=== PATIENT | female | born 1970 | race Caucasian/White ===

== ENCOUNTER 2020-11-29 06:06 | Day surgery (SDC) | payer OTHER ==
[2020-11-26 12:52] LABS: BASOPHILS ABSOLUTE AUTO 0.04 K/mm3 (0.00-0.23); BASOPHILS PERCENT AUTO 1 % (0-2); EOSINOPHILS ABSOLUTE AUTO 0.21 K/mm3 (0.00-0.68); EOSINOPHILS PERCENT AUTO 3 % (0-6); IMMATURE GRAN ABSOLUTE AUTO 0.05 K/mm3 (0.00-0.10); IMMATURE GRAN PERCENT AUTO 1 % (0-1); LYMPHOCYTES ABSOLUTE AUTO 1.38 K/mm3 (0.84-5.20); LYMPHOCYTES PERCENT AUTO 20 % (21-46); MONOCYTES ABSOLUTE AUTO 0.49 K/mm3 (0.16-1.47); MONOCYTES PERCENT AUTO 7 % (4-13); Mean Corpuscular HGB 25.5 pg (26.0-34.0); Mean Corpuscular HGB Conc 31.4 g/dL (31.5-36.5); Mean Corpuscular Volume 81 fL (80-100); Mean Platelet Volume 9.4 fL (9.1-12.4); NEUTROPHILS ABSOLUTE AUTO 4.76 K/mm3 (1.96-9.15); NEUTROPHILS PERCENT AUTO 69 % (41-73); Platelet Count 271 K/mm3 (150-400); RDW Coefficient Variation 15.9 % (11.7-14.2); Red Blood Cell Count 4.32 M/mm3 (3.80-5.20); White Blood Cell Count 6.93 K/mm3 (4.00-11.30)
[2020-11-26 14:15] LABS: Anion Gap 5 mmol/L (6-16); Beta HCG, Quantitative, Serum <1 mIU/mL (0-3); Blood Urea Nitrogen 10 mg/dL (8-24); Bun/Creatinine Ratio 12.9 (12.0-20.0); CO2, Blood 27 mmol/L (21-32); Chloride, Blood 105 mmol/L (98-108); Creatinine, Blood 0.77 mg/dL (0.40-1.00); Glomerular Filtration Rate >60 (60-); Glucose, Blood 89 mg/dL (70-99); Potassium, Blood 3.9 mmol/L (3.5-5.5); Sodium, Blood 137 mmol/L (136-145)
[~2020-11-29] VITALS: Ht 173 cm; Wt 155.6 kg
[~2020-11-29 06:06] MED LIST: ACET325 PO; DOCU100 PO; FERRO-TIME325 M1 PO; FURO20 PO; LEVSOD100 PO; POTA10T PO; Percocet 5-3251 EACH PO; Prinivil10 MG PO; TRAZ50 PO; TUMS500 MG PO; VITAMIN D325 MC3 PO; Zofran4 MG PO
--- NOTE | 2020-11-29 07:43 | NUR ---
Ambulatory in Day Surgery History, Chart, Medications and Allergies reviewed before start of procedure.Patient confirms NPO status and agrees with scheduled surgery. Patient reports completing Chlorhexadine shower X2 prior to admission to hospital.Surgical site prepped with 2% Chlorhexidine cloth wipe.
--- NOTE | 2020-11-29 13:46 | NUR ---
1246 PT ARRIVE TO UNIT FROM DAY SURGERY, ORIENTED TO ROOM. CALL LIGHT WITHIN REACH, IV FLUIDS INFUSING. PT SIPPING WATER AND CHICKEN BROTH.
--- NOTE | 2020-11-29 15:26 | NUR ---
PT TOLERATING PO FLUIDS WELL, STOPPED IV FLUIDS PER DR ORDERS. IV TO LFA IS SALINE LOCKED. PT RESTING IN BED AT THIS TIME. DENIES N/V, N/T. PT REPORTS INCREASED PAIN W/ AMBULATION, DENIES PAIN MEDS AT THIS TIME. CALL LIGHT WITHIN REACH. WILL CONTINUE TO MONITOR.
--- NOTE | 2020-11-29 18:09 | NUR ---
SHIFT SUMMARY PT A&OX4, VSS, PLEASANT AND COOPERATIVE W/ CARE. POD0 TOTAL LAP HYSTERECTOMY W/ ROBOTIC ASSIST AND UMBILICAL HERNIA REPAIR. 5 LAP SITES TO ABD W/ DERMABOND, C/D/I. UMBILICAL INCISION W/ DERMABOND, C/D/I. HYPOACTIVE BOWEL TONES. PT HAS VOIDED. PT REPORTS VERY MINIMAL PAIN, JUST GENERAL DISCOMFORT AND PAIN W/ MOVEMENT. TREATED PER EMAR ORDERS. PT TOLERATING REGULAR DIET, DENIES N/V. SALINE LOCK LFA. PT DENIES N/T TO ALL EXTREMITIES. PT AMBULATING TO BATHROOM W/ SBA. PT RESTING IN BED AT THIS TIME, CALL LIGHT WITHIN REACH. WILL CONTINUE TO MONITOR AND REPORT TO ONCOMING RN.
--- NOTE | 2020-11-29 19:00 | NUR ---
RECEIVED REPORT AND ASSUMED CARE OF PT. SHE IS ALERT, SITTING UP IN BED. SHE STATES THAT SHE HAS NOT BEEN ABLE TO PRODUCE MUCH URINE. EDUCATED ON BLADDER SCAN AND NEED TO SCAN IF SHE IS UNABLE TO PRODUCE URINE. SHE COMPLAINS OF MILD PAIN AT THIS TIME, WILL MEDICATE PER MAR.
--- NOTE | 2020-11-29 20:00 | NUR ---
IV PRESENT ON ASSESSMENT TO LEFT UPPER ARM AND LEFT FOREARM.
[2020-11-30 04:16] LABS: BASOPHILS ABSOLUTE AUTO 0.01 K/mm3 (0.00-0.23); BASOPHILS PERCENT AUTO 0 % (0-2); EOSINOPHILS ABSOLUTE AUTO 0.04 K/mm3 (0.00-0.68); EOSINOPHILS PERCENT AUTO 0 % (0-6); Hematocrit 35.1 % (33.0-51.0); IMMATURE GRAN ABSOLUTE AUTO 0.04 K/mm3 (0.00-0.10); IMMATURE GRAN PERCENT AUTO 0 % (0-1); LYMPHOCYTES ABSOLUTE AUTO 0.82 K/mm3 (0.84-5.20); LYMPHOCYTES PERCENT AUTO 9 % (21-46); MONOCYTES ABSOLUTE AUTO 0.65 K/mm3 (0.16-1.47); MONOCYTES PERCENT AUTO 7 % (4-13); Mean Corpuscular HGB 25.7 pg (26.0-34.0); Mean Corpuscular HGB Conc 31.3 g/dL (31.5-36.5); Mean Corpuscular Volume 82 fL (80-100); Mean Platelet Volume 9.3 fL (9.1-12.4); NEUTROPHILS ABSOLUTE AUTO 7.86 K/mm3 (1.96-9.15); NEUTROPHILS PERCENT AUTO 84 % (41-73); Platelet Count 265 K/mm3 (150-400); RDW Coefficient Variation 16.6 % (11.7-14.2); RDW Standard Deviation 49.1 fL (35.1-46.3); Red Blood Cell Count 4.28 M/mm3 (3.80-5.20); White Blood Cell Count 9.42 K/mm3 (4.00-11.30)
--- NOTE | 2020-11-30 06:04 | NUR ---
SHIFT SUMMARY: GORDY IS A&OX4. VSS, NO ACUTE EVENTS OVERNIGHT. SHE IS A STANDBY ASSIST TO THE BATHROOM, URINATING WITHOUT DIFFICULTY THIS SHIFT. SHE IS TOLERATING PO INTAKE WELL, ABDOMINAL BINDER IN PLACE FOR COMFORT, LAP SITES X 5 C/D&I. SHE REPORTS ADEQUATE PAIN CONTROL WITH 2 TABLETS OF PERCOCET. SHE IS LYING IN BED WITH THE CALL LIGHT IN REACH. WILL REPORT TO DAY SHIFT RN.
[2020-11-30] MEDS ORDERED: DOCU100 PO (12:42)
[2020-11-30] MEDS ORDERED: IBUP800 PO (12:43)
[2020-11-30] MEDS ORDERED: Milk Of Ma400 MG/5 M PO (12:47)
[2020-11-30] MEDS ORDERED: Percocet 5-3251 EACH PO (12:51)
[2020-11-30] MEDS ORDERED: PROM25 PO (12:52)
[2020-11-30] MEDS ORDERED: SENN187 PO (12:53)
[2020-11-30] MEDS ORDERED: SIME80CH PO (12:53)
--- NOTE | 2020-11-30 13:21 | NUR ---
DISCHARGE NOTE: EDUCATED PATIENT ON DISCHARGE INSTRUCTIONS. PATIENT VERBALIZED UNDERSTANDING OF INSTRUCTIONS. HER HARD PERSCRIPTION IS IN THE FOLDER WITH INSTRUCTIONS. BOTH IV WERE TAKEN OUT AND WERE WNL. SHE IS ALERT AND ORIENTED X4. VS ARE WNL AND IS ON RA. PAIN IS MANAGED WITH 2 PERCOCETS PO. PATIENT IS VOIDING AND TOLERATING PO INTAKE. SHE IS CURRENTLY GATHERING HER ITEMS UP IN THE ROOM AND GETTING DRESSED. SHE WILL BE WHEELCHAIRED OUT AND HAVING A FAMILY MEMBER PICK HER UP.
== END 2020-11-30 13:40 | disposition home or self-care (01) ==
LOC: ORSCMMR 06:06 → ORD 07:30 → ORSCMMR 07:30 → SURS 13:02 → ORSCMMR 11-30 13:40
PROVIDERS: Obstetrics & Gynecology
PROC: 0UT7FZZ Resection of Bilateral Fallopian Tubes, Via Natural or Artificial Opening With Percutaneous Endoscopic Assistance (ICD-10-PCS; principal; 2020-11-29 07:30)
PROC: 8E0W4CZ Robotic Assisted Procedure of Trunk Region, Percutaneous Endoscopic Approach (ICD-10-PCS; principal; 2020-11-29 07:30)
PROC: 0WQF0ZZ Repair Abdominal Wall, Open Approach (ICD-10-PCS; principal; 2020-11-29 07:30)
PROC: 0UT9FZZ Resection of Uterus, Via Natural or Artificial Opening With Percutaneous Endoscopic Assistance (ICD-10-PCS; principal; 2020-11-29 07:30)
DX: D25.9 Leiomyoma of uterus, unspecified (principal); N92.1 Excessive and frequent menstruation with irregular cycle; K42.9 Umbilical hernia without obstruction or gangrene; N84.0 Polyp of corpus uteri; N73.6 Female pelvic peritoneal adhesions (postinfective); N83.8 Other noninflammatory disorders of ovary, fallopian tube and broad ligament; N92.4 Excessive bleeding in the premenopausal period; I10 Essential (primary) hypertension; Z87.891 Personal history of nicotine dependence; E66.01 Morbid (severe) obesity due to excess calories; Z68.43 Body mass index [BMI] 50.0-59.9, adult; E03.9 Hypothyroidism, unspecified; F17.210 Nicotine dependence, cigarettes, uncomplicated; Z79.899 Other long term (current) drug therapy
CPT/HCPCS: 58573; 49587; S2900; 36415; 80048; 84702; 85025; 86850; 86900; 86901; 88307; A9270; J0690; J1100; J1650; J1885; J2250; J2405; J2704; J2765; J3010; J7120

== ENCOUNTER 2021-03-26 03:28 | Day surgery (SDC) | payer OTHER ==
[~2021-03-26 03:28] MED LIST changes: +IBUP800 PO; +Milk Of Ma400 MG/5 M PO; +PROM25 PO; +SENN187 PO; +SIME80CH PO
--- NOTE | 2021-03-26 09:10 | NUR ---
BP 153/94. PT STATES SHE TOOK HER BP MEDS THIS AM. PT ABLE TO CHECK BP AT HOME. SHE STATES ITS NORMALLY LOWER THAN WHAT IT IS THIS AM. SHE HAS PARAMETERS TO WHEN TO CALL HER MD. I HAVE ADVISED PT TO MONITOR AT HOME AND CALL MD IF NEEDED.
== END 2021-03-26 09:29 | disposition home or self-care (01) ==
LOC: ATC 03:28
DX: C73 Malignant neoplasm of thyroid gland (principal); I10 Essential (primary) hypertension; E89.0 Postprocedural hypothyroidism; Z79.899 Other long term (current) drug therapy
CPT/HCPCS: 96372; J3240